=== PATIENT | female | born 1935 | race Caucasian/White ===

== ENCOUNTER 2016-05-22 12:08 | Outpatient (CLI) | payer MEDICARE ==
[2016-05-22 12:50] LABS: Hemoglobin 14.5 g/dL (12.0-16.0)
[2016-05-22 13:54] LABS: Anion Gap 16 mmol/L (10-20); BUN (Urea Nitrogen) 21 mg/dL (9.8-20.1); Calc. Creatinine Clearance 0 mL/min (70-130); Calcium 9.7 mg/dL (7.8-10.44); Carbon Dioxide 23 mmol/L (23-31); Chloride 104 mmol/L (98-107); Estimated GFR-MDRD 57; Glucose 98 mg/dL (83-110); Potassium 4.5 mmol/L (3.5-5.1); Sodium 138 mmol/L (136-145)
[2016-05-23 16:57] LABS: Creatinine, Urine 151.75 mg/dL (47-110); Protein, Urine Random Quant Less than 10 mg/dL
== END 2016-05-22 12:09 | disposition home or self-care (01) ==
LOC: MADLAB 12:08
PROVIDERS: ATTEND Internal Medicine Nephrology
DX: I12.9 Hypertensive chronic kidney disease with stage 1 through stage 4 chronic kidney disease, or unspecified chronic kidney disease (principal); N18.2 Chronic kidney disease, stage 2 (mild); E11.00 Type 2 diabetes mellitus with hyperosmolarity without nonketotic hyperglycemic-hyperosmolar coma (NKHHC)
CPT/HCPCS: 36415; 80048; 82570; 84156; 85014; 85018